=== PATIENT | female | born 1960 | race Caucasian/White ===

== ENCOUNTER 2018-08-16 00:46 | Observation (INO) | payer BC ==
[2018-08-16] MEDS ORDERED: Nitroglycerin 2% Ointment 1 INCH/1 GM Packet ONE (01:12)
[2018-08-16 01:17] LABS: #Basophils 0.1 thou/uL (0.0-0.2); #Eosinphils 0.3 thou/uL (0.0-0.7); #Lymphocytes 3.9 thou/uL (1.20-3.40); #Monocytes 1.2 thou/uL (0.11-0.59); %Basophils 0.9 % (0.0-1.0); %Eosinophils 2.4 % (0.0-10.0); %Lymphocytes 30.8 % (21.0-51.0); %Monocytes 9.8 % (0.0-10.0); %Neutrophils 56.1 % (42.0-75.0); Hemoglobin 13.6 g/dL (12.0-16.0); Mean Corpuscular HGB CONC 35.1 g/dL (32.0-36.0); Mean Corpuscular Hemoglobin 31.6 pg (27.0-31.0); Mean Corpuscular Volume 90.2 fL (78.0-98.0); Mean Platelet Volume 7.8 fL (7.4-10.4); Platelet Count 243 thou/uL (130-400); RBC Distribution Width 11.2 % (11.5-14.5); Red Blood Cell (RBC) Count 4.29 mill/uL (4.20-5.40); White Blood Cell (WBC) Count 12.6 thou/uL (4.8-10.8)
[2018-08-16 01:28] LABS: ALT (SGPT) 16 U/L (8-55); AST (SGOT) 14 U/L (5-34); Albumin 3.9 g/dL (3.5-5.0); Alkaline Phosphatase 71 U/L (40-150); Anion Gap 11 mmol/L (10-20); BUN (Urea Nitrogen) 15 mg/dL (9.8-20.1); Bilirubin, Total 0.5 mg/dL (0.2-1.2); CK (CPK) 39 U/L (29-168); Calc. Creatinine Clearance 0 mL/min (70-130); Calcium 9.3 mg/dL (7.8-10.44); Carbon Dioxide 29 mmol/L (22-29); Chloride 104 mmol/L (98-107); Estimated GFR-MDRD Greater than 90; Globulin 2.9 g/dL (2.4-3.5); Glucose 102 mg/dL (70-105); Potassium 3.9 mmol/L (3.5-5.1); Protein, Total 6.8 g/dL (6.0-8.3); Sodium 140 mmol/L (136-145)
[2018-08-16 01:35] LABS: CKMB 1.1 ng/mL (0-6.6); Troponin I Less than 0.010 ng/mL (< 0.028)
[2018-08-16 04:26] LABS: Troponin I Less than 0.010 ng/mL (< 0.028)
[2018-08-16] MEDS ORDERED: Ondansetron ODT 4 MG TAB SL PRN (05:00)
[2018-08-16] MEDS ORDERED: Sodium Chloride 0.9% 1,000 ML IV SCH (05:00)
[2018-08-16] MEDS ORDERED: Ondansetron PF 4 MG/2 ML Vial IVP PRN (05:00)
[2018-08-16 05:33] VITALS: BMI 38.2
[2018-08-16] MEDS: Nitroglycerin 2% Ointment 1 INCH/1 GM Packet TOP SCH ×2 (05:44→08:17)
[2018-08-16 07:23] LABS: Troponin I Less than 0.010 ng/mL (< 0.028)
--- NOTE | 2018-08-16 08:44 | CT ---
PRELIMINARY REPORT/[facility]/EMERGENTY AFTER-HOURS PROCEDURE CT Angiography Chest With Intravenous Contrast EXAM DATE/TIME: 08/16/2018 1:44 AM CLINICAL HISTORY: 58 years old, female; Pain; Chest pain; Patient HX: 58 yo f who presents today with sudden onset of s ubsternal pleuritic chest pain this 1100 that woke her up out of bed. Episode has since dissipated bu t comes and goes. Negative for SOB, nausea, or diaphoresis. Chest pain is not exertionally related. N o fever, chills, or myalgias. Extremely reproducible with palpation. Patient that this has been going on for the past week. TECHNIQUE: Axial computed tomographic angiography images of the chest with intravenous contrast using CT angiogr aphy protocol. Coronal reformatted images were created and reviewed. MIP reconstructed images were created and reviewed. CONTRAST: 85 ml of [id number] administered intravenously. COMPARISON: No relevant prior studies available. FINDINGS: Pulmonary arteries: Normal. No pulmonary emboli. Aorta: Normal. No aortic aneurysm. No aortic dissection. Lungs: Normal. No consolidation. No masses. Pleural space: Normal. No pneumothorax. No pleural effusion. Heart: Normal. No cardiomegaly. No pericardial effusion. Bones/joints: Mild levoscoliosis of the thoracic spine. No acute fracture. Soft tissues: Unremarkable. Lymph nodes: Unremarkable. No enlarged lymph nodes. IMPRESSION: No acute findings. Thank you for allowing us to participate in the care of your patient. Dictated and Authenticated by: Barak Lopez MD 08/16/2018 2:25 AM Central Time ([place] & [place]) FINAL REPORT CT ANGIOGRAM CHEST WITH CONTRAST: Date: 08/16/18 HISTORY: Substernal chest pain. Shortness of breath. COMPARISON: Chest radiograph same date. TECHNIQUE: CT angiogram chest performed after the intravenous administration of contrast. 3D rendering provided. FINDINGS/IMPRESSION: Findings and impression are concordant with the preliminary report by Liz. POS: [facility]
[2018-08-16] MEDS ORDERED: Aspirin 325 mg Enteric Coated Tablet PO SCH (09:00)
--- NOTE | 2018-08-16 09:28 | RAD ---
CHEST 1 VIEW: Date: 08/16/18 HISTORY: Chest pain. Comparison with radiograph from 06/07/13. FINDINGS: Lungs are mildly hypoinflated. No pneumothorax. No effusion. No acute osseous abnormality. IMPRESSION: No acute intrathoracic abnormality. POS: [facility]
--- NOTE | 2018-08-16 11:40 | HP ---
SHORT STAY SUMMARY DATE OF ADMISSION: 08/16/2018 DATE OF DISCHARGE 08/16/2018 PRIMARY CARE PHYSICIAN: Dr. Madhav Davis. CHIEF COMPLAINT: Chest pain. PROCEDURES: Cardolite with NM stress test is negative, CXR: no acute findings, CTA chest: No acute abnormalities CONSULTANTS: NONE HISTORY OF PRESENT ILLNESS/HOSPITAL COURSE: The patient presented to the emergency room this morning with chest pain that woke her up. Reports similar chest pain intermittently for the past week. Reports brief shortness of breath with each pain episode. Reports each episode lasts 2-3 hours. Denies any cough , cold, congestion with it. Reports pain radiates to her left shoulder blade. Denies a cardiac history. Does have a history of hypertension. The patient was admitted to the observation unit for chest pain rule out. Cardiac Stress test was negative, serial troponins are also negative. Patient is denying current chest pain or other symptoms and would like to be discharged home. Dr. Norman, [facility] [place] physician consulted and agrees to plan. DISCHARGE DIAGNOSES: 1) Atypical Chest pain 2) Hypertension, chronic PAST MEDICAL HISTORY: Includes hypertension. PAST SURGICAL HISTORY: , cholecystectomy. PSYCHIATRIC HISTORY: None. SOCIAL HISTORY: Denies smoking, denies alcohol use, denies drug use. CURRENT MEDICATIONS: Include Benicar 20 mg p.o. daily and Estrace 1 mg p.o. daily. Patient will continue home medications on discharge. Pepcid Completed, OTC, was recommended to aid with GERD symptoms. ALLERGIES: The patient is allergic to CODEINE. Reports she does not tolerate opioids. PAST FAMILY HISTORY: Positive for colon cancer. Negative for cardiac history. REVIEW OF SYSTEMS: Constitutional: Denies fever, chills, weakness. Eyes: Denies vision changes. Denies eye pain. ENT: Denies sore throat, dysphagia, epistaxis. Cardiovascular: Sharp pleuritic-type chest pain. No palpitations, no dyspnea on exertion. Respiratory: No stridor, cough, shortness of breath, wheezing. Gastrointestinal: No abdominal pain, no nausea, no diarrhea or vomiting. Genitourinary: Female, no dysuria or hematuria. Musculoskeletal: Denies any neck pain. No arthralgias. Skin: No skin changes, pruritus, or rash, no skin lesions. Neurologic: No dizziness, no headache, no focal weakness. Endocrine: No polyuria or polydipsia. Hematology/Lymphatics: No petechiae. Denies bruising easily. Psychiatric: Denies depression, anxiety. PHYSICAL EXAMINATION: CONSTITUTIONAL/VITAL SIGNS: Temperature 98.1, pulse 82, blood pressure 131/68, respirations 18, patient is 98 on room air. GENERAL: She is in no acute distress. HEENT: Head: Atraumatic and normocephalic. Eyes: Normal to inspection. Pupils are reactive and equal to light. Extraocular eye movements are intact. ENT: Mucous membranes are moist. NECK: Normal range of motion. Trachea is midline. RESPIRATORY: Breath sounds are clear bilaterally. Tenderness to palpation to substernal chest. CARDIOVASCULAR: S1 and S2. No murmurs or gallops noted. ABDOMEN: Nontender. No peritoneal signs. BACK: Normal range of motion. No tenderness to palpation. EXTREMITIES: Upper extremities, strength is equal bilaterally. Sensation and pulses intact. Lower extremities, normal range of motion. Pedal pulse intact. No edema. NEUROLOGIC: No focal or sensory deficit. No motor defects. SKIN: Warm, dry, normal in color. PSYCHIATRIC: Oriented x3. EKG: In the ER, showed normal sinus rhythm, conduction normal, normal ST waves. PERTINENT LABORATORY AND X-RAYS: The patient had a chest x-ray performed in the ER that showed no acute intrathoracic abnormality. Patient also had a CT chest angio; impression was no acute findings. White blood cell count of 12.6, RBCs 4.29, hemoglobin 13.6, hematocrit 38.7, platelet count 243. Patient had an elevated D-dimer of 0.45. Chemistry: Sodium is 140, potassium 3.9, chloride 104, carbon dioxide 29, anion gap is 11, BUN is 15, creatinine 0.65, estimated GFR is greater than 90, glucose 102. Troponins x3 negative. Lipase 45. TSH is 3.18. DISCHARGE CONDITION: STABLE Patient will be discharged home, will need to follow up with PCP, Dr. Davis within one week. ANGELA
[2018-08-16 12:10] VITALS: BP 130/69; TEMP 97.8
--- NOTE | 2018-08-16 12:19 | NM ---
CARDIAC SPECT: CLINICAL HISTORY: 58-year-old female with chest pain and hypertension. TECHNIQUE: A stress-only myocardial perfusion scan was performed following the intravenous administration of 31 mCi technetium-99m sestamibi. Exercise stress was monitored and interpreted by Dr. Hirsch. FINDINGS: Homogeneous tracer distribution is seen in the myocardial segments on the post stress images. GATED SPECT LVEF: 77%. WALL MOTION EXAM: Normal. IMPRESSION: Normal post stress myocardial perfusion scan. POS: [facility]
--- NOTE | 2018-08-16 13:19 | PDOC.EVN ---
Event Note - Event Note Event Note: reviewed with Ayan Coon NP.. Pt iterviewed and examined, chart reviewed, agree with management and DC plan
== END 2018-08-16 14:20 | disposition home or self-care (01) ==
LOC: SCSER 00:46 → 2SW 04:13
PROVIDERS: ADMIT Internal Medicine; ATTEND Internal Medicine
DX: R07.89 Other chest pain (principal); I10 Essential (primary) hypertension; Z79.899 Other long term (current) drug therapy; Z88.5 Allergy status to narcotic agent; Z91.041 Radiographic dye allergy status
CPT/HCPCS: 36415; 71045; 71275; 78452; 80053; 82550; 82553; 83690; 84443; 84484; 85025; 85379; 93005; 93017; A9500; G0378

== ENCOUNTER 2018-09-30 19:30 | Outpatient (CLI) | payer BC | END 2018-09-30 19:31 | disposition home or self-care (01) | LOC: SLEEPLAB 19:30 | PROVIDERS: ATTEND Family Medicine | DX: G47.33 Obstructive sleep apnea (adult) (pediatric) (principal); R06.83 Snoring | CPT/HCPCS: 95811 ==

== ENCOUNTER 2019-09-22 15:19 | Outpatient (CLI) | payer BC ==
--- NOTE | 2019-09-22 16:45 | MRI ---
Exam: MRI cervical spine without contrast HISTORY: Cervical radiculitis.. COMPARISON: None FINDINGS: Appropriate T1 marrow signal intensity of the cervical vertebra. Cervical spine vertebral body heigh t is maintained. No fracture. No significant STIR hyperintensity to suggest vertebral body edema or ligamentous injury. Visualized brain parenchyma, cervicomedullary junction, cervical cord and the upp er thoracic cord have a normal size and signal intensity C2-C3: No significant central canal stenosis or significant neural foraminal narrowing C3-C4: No significant central canal stenosis or significant neural foraminal narrowing C4-C5: No significant central canal stenosis or significant neural foraminal narrowing C5-C6: No significant central canal stenosis or significant left neural foraminal narrowing. Mild rig ht neural foraminal narrowing due to uncovertebral hypertrophy. C6-C7: Broad-based disc bulge contacts the ventral thecal sac. Subarachnoid space is maintained. No s ignificant central canal stenosis. Mild right neural foraminal narrowing due to uncovertebral hypertrophy. Left neural foramen is patent C7-T1: No significant central canal stenosis or significant neural foraminal narrowing IMPRESSION: No significant central canal stenosis or significant neural foraminal narrowing. Mild right neural f oraminal narrowing at C5-C6 and C6-C7.
== END 2019-09-22 15:20 | disposition home or self-care (01) ==
LOC: TBSIIMAG 15:19
PROVIDERS: ATTEND Orthopaedic Surgery Hand Surgery
DX: M54.12 Radiculopathy, cervical region (principal); M48.02 Spinal stenosis, cervical region
CPT/HCPCS: 72141

== ENCOUNTER 2021-09-29 10:13 | Outpatient (CLI) | payer BC ==
[2021-09-29 13:26] LABS: Bilirubin Neg (Negative); Blood, Urine Negative (Negative); Clarity Clear (Clear); Glucose, Urine (Dipstick) Normal (Negative); Ketone, Urine Negative (Negative); Leukocyte Negative (Negative); Nitrite Negative (Negative); Protein, Urine (Dipstick) Negative (Neg-Trace); Urobilinogen Normal mg/dL (Less than 2)
[2021-09-29 13:29] LABS: Anion Gap 14 mmol/L (10-20); BUN (Urea Nitrogen) 21 mg/dL (9.8-20.1); Calc. Creatinine Clearance 0 mL/min (70-130); Calcium 9.5 mg/dL (7.8-10.44); Carbon Dioxide 29 mmol/L (22-29); Chloride 99 mmol/L (98-107); Glucose 99 mg/dL (70-105); Potassium 3.9 mmol/L (3.5-5.1); Sodium 138 mmol/L (136-145)
[2021-09-29 13:45] LABS: #Basophils 0.1 10x3/uL (0.0-0.2); #Eosinphils 0.2 10x3/uL (0.0-0.5); #Monocytes 0.7 10x3/uL (0.0-1.1); #Neutrophils 6.4 10x3/uL (1.5-8.4); %Basophils 0.7 % (0.0-2.0); %Lymphocytes 25.7 % (18.0-47.0); %Monocytes 6.8 % (0.0-10.0); %Neutrophils 64.1 % (40.0-75.0); Hemoglobin 14.3 g/dL (12.0-15.5); Mean Corpuscular HGB CONC 33.3 g/dL (32.0-36.0); Mean Corpuscular Hemoglobin 31.9 pg (27.0-33.0); Mean Platelet Volume 9.7 fl (7.4-10.4); Platelet Count 362 10x3/uL (150-450); RBC Distribution Width 12.9 % (11.5-14.5); Red Blood Cell (RBC) Count 4.48 10x6/uL (3.90-5.03); White Blood Cell (WBC) Count 9.9 10x3/uL (3.5-10.5)
[2021-09-30 10:22] LABS: SARS-CoV-2 PCR by NAA Not Detected (NotDetected)
== END 2021-09-29 10:14 | disposition home or self-care (01) ==
LOC: LABBT 10:13
PROVIDERS: ATTEND Orthopaedic Surgery Hand Surgery
DX: Z01.818 Encounter for other preprocedural examination (principal); Z20.822 Contact with and (suspected) exposure to COVID-19
CPT/HCPCS: 80048; 81003; 85025; 93005; 93010; U0003; U0005

== ENCOUNTER 2021-10-02 09:23 | Observation (INO) | payer BC ==
[2021-10-02] MEDS ORDERED: ceFAZolin 2 GM/DEX 5% 100 ML BAG ONE (10:25)
[2021-10-02] MEDS ORDERED: Fentanyl 250 MCG/5 ML VIAL ONE (12:28)
[2021-10-02] MEDS ORDERED: Betamet Acet/Betamet Na Ph 30 MG/5 ML VIAL ONE ×2 (12:35→12:40)
[2021-10-02] MEDS ORDERED: Neomycin-Polymyxin 1 ML AMP ONE ×2 (12:35→12:40)
[2021-10-02] MEDS ORDERED: Bupivacaine PF 0.5% 30 ML VIAL ONE ×2 (12:35→12:40)
[2021-10-02] MEDS ORDERED: Bacitracin Zinc Ointment 30 gm TUBE ONE ×2 (12:35→12:40)
[2021-10-02] MEDS ORDERED: PHENYLEPHRINE-NS 100 MCG/ML 10 ML SYRINGE ONE (12:50)
[2021-10-02] MEDS ORDERED: Dexamethasone 20 MG/5 ML VIAL ONE (12:50)
[2021-10-02] MEDS ORDERED: Lidocaine 1% PF 5 ML VIAL ONE (12:50)
[2021-10-02] MEDS ORDERED: PROPOFOL 200 MG/20 ML VIAL ONE (12:50)
[2021-10-02] MEDS ORDERED: Ketorolac Tromethamine 30 MG/ML VIAL ONE ×2 (16:11→22:11)
[2021-10-02] MEDS ORDERED: Promethazine HCl 25 MG/ML VIAL IVPB PRN (16:17)
[2021-10-02] MEDS ORDERED: Ondansetron HCl/PF 4 MG/2 ML Vial IVP PRN (16:17)
[2021-10-02] MEDS ORDERED: Fentanyl 100 MCG/2 ML VIAL ONE ×2 (16:17→17:10)
[2021-10-02] MEDS ORDERED: Promethazine HCl 25 MG/ML VIAL IM PRN ×2 (16:17→17:20)
[2021-10-02] MEDS ORDERED: Ondansetron PF 4 MG/2 ML Vial IVP PRN (17:11)
[2021-10-02] MEDS ORDERED: Meperidine HCl/PF 25 MG/ML VIAL IM PRN (17:19)
[2021-10-02] MEDS ORDERED: Acetaminophen 500 MG TAB PO SCH ×2 (18:00→22:00)
[2021-10-02] MEDS: Vancomycin 1 GM in Premix Bag 1 BAG IVPB SCH (21:46)
[2021-10-02] MEDS: Ketorolac Tromethamine 30 MG/ML VIAL IVP SCH (22:16)
[2021-10-02] MEDS: Fentanyl 100 MCG/2 ML VIAL SLOW IVP PRN (23:25)
[2021-10-02 23:49] VITALS: BMI 36.7
[2021-10-02] MEDS ORDERED: Ketorolac Tromethamine 60 MG/2 ML VIAL IVP SCH (23:59)
[2021-10-03] MEDS: Ketorolac Tromethamine 30 MG/ML VIAL IVP SCH ×2 (05:15→10:39)
[2021-10-03] MEDS: Acetaminophen 500 MG TAB PO SCH ×2 (05:16→08:41)
[2021-10-03] MEDS: Vancomycin 1 GM in Premix Bag 1 BAG IVPB SCH (05:16)
[2021-10-03 10:03] VITALS: BP 116/75; TEMP 98
[2021-10-03] MEDS: Fentanyl 100 MCG/2 ML VIAL SLOW IVP PRN (10:39)
== END 2021-10-03 11:36 | disposition home or self-care (01) ==
LOC: SDC 09:23 → SJJU 16:51
PROVIDERS: ADMIT Orthopaedic Surgery Hand Surgery; ATTEND Orthopaedic Surgery Hand Surgery
PROC: 01N50ZZ Release Median Nerve, Open Approach (ICD-10-PCS; principal; 2021-10-02)
PROC: 0LX50ZZ Transfer Right Lower Arm and Wrist Tendon, Open Approach (ICD-10-PCS; 2021-10-02)
PROC: 0RUS07Z Supplement Right Carpometacarpal Joint with Autologous Tissue Substitute, Open Approach (ICD-10-PCS; 2021-10-02)
DX: G56.01 Carpal tunnel syndrome, right upper limb (principal); M18.11 Unilateral primary osteoarthritis of first carpometacarpal joint, right hand; I10 Essential (primary) hypertension; Z79.899 Other long term (current) drug therapy; Z88.4 Allergy status to anesthetic agent; Z88.5 Allergy status to narcotic agent; Z91.041 Radiographic dye allergy status
CPT/HCPCS: 76000; 96374; 96375; 96376; C1713; C1776; G0378; J0702; J1100; J1885; J2704; J3010; J3370; S0020

== ENCOUNTER 2022-08-20 09:16 | Outpatient (CLI) | payer BC ==
[2022-08-20 10:06] LABS: #Basophils 0.1 10x3/uL (0.0-0.2); #Eosinphils 0.2 10x3/uL (0.0-0.5); #Monocytes 0.7 10x3/uL (0.0-1.1); #Neutrophils 6.1 10x3/uL (1.5-8.4); %Basophils 0.7 % (0.0-2.0); %Eosinophils 1.7 % (0.0-6.0); %Lymphocytes 27.5 % (18.0-47.0); %Monocytes 7.4 % (0.0-10.0); Hemoglobin 13.8 g/dL (12.0-15.5); Mean Corpuscular HGB CONC 34.6 g/dL (32.0-36.0); Mean Corpuscular Hemoglobin 32.9 pg (27.0-33.0); Mean Corpuscular Volume 95.2 fl (81.6-98.3); Platelet Count 289 10x3/uL (150-450); RBC Distribution Width 12.7 % (11.5-14.5); Red Blood Cell (RBC) Count 4.19 10x6/uL (3.90-5.03); White Blood Cell (WBC) Count 9.9 10x3/uL (3.5-10.5)
[2022-08-20 10:37] LABS: Anion Gap 13 mmol/L (10-20); BUN (Urea Nitrogen) 25 mg/dL (9.8-20.1); Calc. Creatinine Clearance 0 mL/min (70-130); Calcium 9.3 mg/dL (7.8-10.44); Carbon Dioxide 28 mmol/L (22-29); Chloride 101 mmol/L (98-107); Estimated GFR 96; Glucose 96 mg/dL (70-105); Potassium 4.1 mmol/L (3.5-5.1); Sodium 138 mmol/L (136-145)
== END 2022-08-20 09:17 | disposition home or self-care (01) ==
LOC: LABBT 09:16
PROVIDERS: ATTEND Orthopaedic Surgery Hand Surgery
DX: Z01.818 Encounter for other preprocedural examination (principal); M18.12 Unilateral primary osteoarthritis of first carpometacarpal joint, left hand; M89.342 Hypertrophy of bone, left hand
CPT/HCPCS: 80048; 85025; 93005; 93010

== ENCOUNTER 2022-08-24 11:39 | Day surgery (SDC) | payer BC ==
[2022-08-21 11:28] VITALS: BMI 39.3
[2022-08-24] MEDS ORDERED: Bupivacaine PF 0.5% 30 ML VIAL ONE (13:01)
[2022-08-24] MEDS ORDERED: Bacitracin Zinc Ointment 30 gm TUBE ONE (13:05)
[2022-08-24] MEDS ORDERED: fentaNYL PF 100 MCG/2 ML SYRINGE ONE (13:48)
[2022-08-24] MEDS ORDERED: Sodium Chloride 0.9% 100 ML ONE (14:03)
[2022-08-24] MEDS ORDERED: CEFAZOLIN 2 GM VIAL ONE (14:03)
[2022-08-24] MEDS ORDERED: PROPOFOL 200 MG/20 ML VIAL ONE (14:05)
[2022-08-24] MEDS ORDERED: ePHEDrine 50 MG/ML VIAL ONE (14:05)
[2022-08-24] MEDS ORDERED: Ondansetron PF 4 MG/2 ML Vial ONE ×2 (14:05→18:41)
[2022-08-24] MEDS ORDERED: PHENYLEPHRINE-NS 100 MCG/ML 10 ML SYRINGE ONE (14:05)
[2022-08-24] MEDS ORDERED: Dexamethasone 20 MG/5 ML VIAL ONE (14:05)
[2022-08-24] MEDS ORDERED: Ketorolac Tromethamine 30 MG/ML VIAL ONE (18:15)
== END 2022-08-24 19:25 | disposition home or self-care (01) ==
LOC: SDC 11:39
PROVIDERS: ATTEND Orthopaedic Surgery Hand Surgery
PROC: 0RQT0ZZ Repair Left Carpometacarpal Joint, Open Approach (ICD-10-PCS; principal; 2022-08-24)
PROC: 0PBQ0ZX Excision of Left Metacarpal, Open Approach, Diagnostic (ICD-10-PCS; principal; 2022-08-24)
DX: M18.12 Unilateral primary osteoarthritis of first carpometacarpal joint, left hand (principal); M25.732 Osteophyte, left wrist; I10 Essential (primary) hypertension; Z79.899 Other long term (current) drug therapy; Z88.4 Allergy status to anesthetic agent; Z88.5 Allergy status to narcotic agent; Z88.6 Allergy status to analgesic agent; Z88.8 Allergy status to other drugs, medicaments and biological substances
CPT/HCPCS: 88307; 88311; C1776; J1100; J1885; J2405; J2704; J3490; S0020